=== PATIENT | male | born 1965 | race Caucasian/White ===

== ENCOUNTER 2017-10-29 11:26 | Emergency (ER) | payer OTHER ==
[~2017-10-29] VITALS: Ht 170.2 cm; Wt 118.1 kg
[~2017-10-29 11:26] MED LIST: DOCU1CAP39 PO; HYDR2.5%T PR; LISI-591 PO; SIMV20 PO; [UNRECOGNIZED DRUG - OTHER] RECTAL
[2017-10-29 11:27] VITALS: BP 145/70; PULSE 97; RESP 16; TEMP 98.3; O2SAT 95
[2017-10-29] MEDS ORDERED: FISHCAP4 PO (13:03)
[2017-10-29] MEDS ORDERED: LISI-515 PO (13:03)
[2017-10-29] MEDS ORDERED: ASPI81CH6 CHEW (13:03)
--- NOTE | 2017-10-29 13:25 | PD ---
HPI Chief Complaint: Hypertension Time Seen by Provider: 13:07 Travel History International Travel<30 days: No Contact w/Intl Traveler<30days: No Traveled to known affect area: No History of Present Illness HPI The patient is a 52-year-old male who presents to the emergency department for elevated blood pressure readings at home. The patient has a history of hypertension and was previously on lisinopril 40 mg daily, and initially prescribed by Dr. Gonzalez Chapman. However, the patient did not see his primary physician for several years, was using his lisinopril 40 mg prescription and taking 20 mg daily. The patient saw an urgent care several weeks ago to perform laboratory evaluation and advised them to follow-up with a primary physician. The patient did see another physician, Dr. Cook, who prescribed him lisinopril 20 mg daily to start with. The patient states over the last several weeks he has had intermittent episodes of dizziness, ringing in the ears, tunnel vision which she attributes to elevated blood pressure readings. Patient plans on following up with his primary physician tomorrow. Upon arrival the patient denies any chest pain, shortness of breath, lightheadedness, nausea, vomiting, or tinnitus. The patient is asymptomatic upon arrival. PFSH Past Medical History Blood Disorders: No Heart Rhythm Problems: Yes (tachycardia) Cancer: No Cardiac Catheterization: No Cardiovascular Problems: Yes (HTN) High Cholesterol: Yes Congestive Heart Failure: No Diabetes: No Diminished Hearing: No Endocrine: No Genitourinary: No Hypertension: Yes (borderline taking meds) Immune Disorder: No Musculoskeletal: No Neurologic: No Psychiatric: No Reproductive: No Respiratory: No Myocardial Infarction: No Past Surgical History Coronary Artery Bypass Graft: No Joint Replacement: Yes (plate in the left lower let) Pacemaker: No Other Surgery: Yes (REPAIR FINGER AMPUTATION) Family History Family Myocardial Infarction: Yes (father on June 24, 2009) Social History Alcohol Use: No Tobacco Use: No Substance Use: No Allergies-Medications (Allergen,Severity, Reaction): Coded Allergies: penicillin G (Unverified Allergy, Severe, Shortness of Breath, 10/29/17) Reported Meds & Prescriptions Reported Meds & Active Scripts Active Reported Aspirin Low Dose (Aspirin) 81 Mg Chew 81 Mg CHEW DAILY Fish Oil + D3 (Fish Oil-Cholecalciferol) 1,200-1,000 Mg-Unit Cap 1 Cap PO DAILY Lisinopril 20 Mg Tab 20 Mg PO DAILY Review of Systems Except as stated in HPI: all other systems reviewed are Neg Eyes: Positive: Other (occasional intermittent tunnel vision) HENT: Positive: Headaches, Other (frontal sinus headache for the patient) Cardiovascular: No: Chest Pain or Discomfort Respiratory: No: Shortness of Breath Gastrointestinal: No: Nausea, Vomiting, Abdominal Pain Neurologic: Positive: Dizziness, Headache, No: Focal Abnormalities, Ataxia, Change in Mentation, Slurred Speech, Paresthesia, Sensory Disturbance Physical Exam Narrative GENERAL: Awake, alert, pleasant 52-year-old male who appears his stated age and is in no acute respiratory distress. SKIN: Focused skin assessment warm/dry. HEAD: Atraumatic. Normocephalic. EYES: Pupils equal and round. Pupils are 4 mm bilateral and reactive. EOMs are intact. Patient is able to see fingers at a distance of 2 feet without difficulty. The patient does were glasses. TMs are translucent. EACs are clear. ENT: No nasal bleeding or discharge. Mucous membranes pink and moist. NECK: Trachea midline. No JVD. CARDIOVASCULAR: Regular rate and rhythm. Systolic murmur noted. RESPIRATORY: No accessory muscle use. Clear to auscultation. Breath sounds equal bilaterally. GASTROINTESTINAL: Abdomen soft, non-tender, nondistended. MUSCULOSKELETAL: No obvious deformities. No clubbing. No cyanosis. No edema. NEUROLOGICAL: Awake and alert. No obvious cranial nerve deficits. Motor grossly within normal limits. Normal speech. Nonfocal. Oriented 4. Finger to nose is normal. Patient ambulates without difficulty. PSYCHIATRIC: Appropriate mood and affect; insight and judgment normal. Data Data Last Documented VS Vital Signs Date Time Temp Pulse Resp B/P (MAP) Pulse Ox O2 Delivery O2 Flow Rate FiO2 10/29/17 13:26 88 148/83 (104) 144/79 (100) 10/29/17 11:27 98.3 16 95 Orders Orders Bilateral Bp Monitoring (10/29/17 13:19) Ed Discharge Order (10/29/17 14:07) [facility] Medical Decision Making Medical Screen Exam Complete: Yes Emergency Medical Condition: Yes Medical Record Reviewed: Yes Differential Diagnosis Differential diagnosis includes hypertension, hypertensive urgency, hypertensive emergency, CVA, TIA, sinus headache, labyrinthitis. Narrative Course The patient's neurologic exam is unremarkable. The patient states he had complete blood work performed 2 weeks ago which was unremarkable, states his kidney function was within normal limits. The patient also had an EKG at that time. The patient is currently asymptomatic, therefore, no indication for acute management. However, the patient's blood pressure was evaluated in both arms at bedside. Blood pressure was checked both sides, systolic was in the 140s and diastolic was in the 70s to 80s. The patient is advised to follow-up with his primary physician and return if symptoms worsen or progress. Diagnosis Primary Impression: Hypertension Qualified Codes: I10 - Essential (primary) hypertension Patient Instructions: General Instructions Additional Instructions: Follow-up with her primary physician. Return if symptoms worsen or progress. Med/Other Pt SpecificInfo: No Change to Meds Disposition: 01 DISCHARGE HOME Condition: Stable Kobi Núñez MD Oct 29, 2017 13:25
[2017-10-29 13:26] VITALS: BP_SYST 144; BP_SYST 148; BP_DIAS 79; BP_DIAS 83; PULSE 88
== END 2017-10-29 14:15 | disposition home or self-care (01) ==
LOC: PHED 11:26 → PHEFT 14:15
DX: I10 Essential (primary) hypertension (principal); E78.00 Pure hypercholesterolemia, unspecified
CPT/HCPCS: 99281

== ENCOUNTER 2018-03-27 18:19 | Observation (INO) | payer OTHER ==
[~2018-03-27] VITALS: Ht 167.6 cm; Wt 104.8 kg
[~2018-03-27 18:19] MED LIST changes: +ASPI81CH6 CHEW; -DOCU1CAP39 PO; +FISHCAP4 PO; -HYDR2.5%T PR; +LISI-515 PO; -LISI-591 PO; -SIMV20 PO; -[UNRECOGNIZED DRUG - OTHER] RECTAL
[2018-03-27 18:40] VITALS: BP 132/77; PULSE 102; RESP 16; TEMP 99; O2SAT 97
[2018-03-27] MEDS ORDERED: GARL400T2 PO (19:04)
[2018-03-27] MEDS ORDERED: SODIUM CHLORIDE 0.9% FLUSH 10 ML FLUSH IV FLUSH PRN ×2 (20:00→23:00)
[2018-03-27 20:01] LABS: AUTOMATED NEUTROPHIL # 5.9 TH/MM3 (1.8-7.7); BASOPHIL # 0.1 TH/MM3 (0-0.2); BASOPHIL % 1.3 % (0.0-2.0); EOSINOPHIL # 0.1 TH/MM3 (0-0.4); EOSINOPHIL % 0.8 % (0.0-4.0); HEMATOCRIT 41.9 % (39.0-51.0); HEMOGLOBIN 13.7 GM/DL (13.0-17.0); LYMPH % 29.5 % (9.0-44.0); LYMPHOCYTE # 2.8 TH/MM3 (1.0-4.8); MEAN CELL VOLUME 86.5 FL (80.0-100.0); MEAN CORPUSCULAR HEMOGLOBIN 28.3 PG (27.0-34.0); MEAN CORPUSCULAR HGB CONC 32.7 % (32.0-36.0); MEAN PLATELET VOLUME 7.9 FL (7.0-11.0); MONO % 6.4 % (0.0-8.0); MONOCYTE # 0.6 TH/MM3 (0-0.9); PLATELET COUNT 266 TH/MM3 (150-450); RED BLOOD COUNT 4.84 MIL/MM3 (4.50-5.90); RED CELL DISTRIBUTION WIDTH 12.6 % (11.6-17.2); WHITE BLOOD COUNT 9.5 TH/MM3 (4.0-11.0)
[2018-03-27 20:09] LABS: CHLORIDE 104 MEQ/L (98-107); SODIUM (NA) 138 MEQ/L (136-145)
[2018-03-27 20:13] LABS: ALBUMIN 3.6 GM/DL (3.4-5.0); BICARBONATE 27.7 MEQ/L (21.0-32.0); BLOOD UREA NITROGEN 13 MG/DL (7-18); GLUCOSE,RANDOM 87 MG/DL (74-106); MAGNESIUM 2.2 MG/DL (1.5-2.5)
[2018-03-27 20:16] LABS: ALT (GPT) 32 U/L (12-78); AST (GOT) 16 U/L (15-37); CREATININE 0.78 MG/DL (0.60-1.30); GLOMERULAR FILTRATION RATE 104 ML/MIN (>89)
[2018-03-27 20:18] LABS: TOTAL BILIRUBIN ADULT 0.4 MG/DL (0.2-1.0); TOTAL PROTEIN 7.4 GM/DL (6.4-8.2)
[2018-03-27 20:19] LABS: ALKALINE PHOSPHATASE 58 U/L (45-117)
[2018-03-27 20:21] LABS: TROPONIN I LESS THAN 0.02 NG/ML (0.02-0.05)
[2018-03-27] MEDS ORDERED: IOHEXOL 350 MG/ML 10 ML VIAL (for RAD DIAG) IVCONTRAST ONE (21:21)
[2018-03-27 21:22] VITALS: BP 121/77; PULSE 83; RESP 16; O2SAT 98
--- NOTE | 2018-03-27 21:37 | RADRPT ---
EXAM DATE/TIME: 03/27/2018 20:33 [facility] COMPARISON: CT ABDOMEN & PELVIS W CONTRAST, March 27, 2018, 21:04. INDICATIONS : Epigastric pain for 3 weeks. MEDICAL HISTORY : Hypertension. Hypercholesterolemia. SURGICAL HISTORY : None. ENCOUNTER: Initial ACUITY: 3 weeks PAIN SCORE: 4/10 LOCATION: Epigastric. FINDINGS: Slight streaky parenchymal opacity in the lung bases. No evidence of effusion. Cardiomediastinal cont ours are satisfactory. CONCLUSION: Mild bibasilar parenchymal opacities Rehan Farmer MD on March 27, 2018 at 21:34 Board Certified Radiologist. This report was verified electronically.
--- NOTE | 2018-03-27 21:42 | RADRPT ---
EXAM DATE/TIME: 03/27/2018 21:04 [facility] COMPARISON: CHEST SINGLE AP, March 27, 2018, 20:33. INDICATIONS : Bilateral lower quadrant pain. IV CONTRAST: 100 cc Omnipaque 350 (iohexol) IV ORAL CONTRAST: No oral contrast ingested. RADIATION DOSE: 21.82 CTDIvol (mGy) MEDICAL HISTORY : Hypertension. SURGICAL HISTORY : None. ENCOUNTER: Initial ACUITY: 3 weeks PAIN SCALE: 1/10 LOCATION: Bilateral lower quadrant TECHNIQUE: Volumetric scanning of the abdomen and pelvis was performed. Using automated exposure control and ad justment of the mA and/or kV according to patient size, radiation dose was kept as low as reasonably achievable to obtain optimal diagnostic quality images. DICOM format image data is available electro nically for review and comparison. FINDINGS: LOWER LUNGS: Minimal linear atelectasis or scarring in the lung bases. LIVER: Small right lobe hepatic cyst. No suspicious mass. No biliary ductal dilatation. SPLEEN: Normal size without lesion. PANCREAS: Within normal limits. KIDNEYS: 3.4 cm cyst arising from the posterior upper pole cortex of the left kidney. Right kidney is unremark able. No hydronephrosis or stone. ADRENAL GLANDS: Within normal limits. VASCULAR: There is no aortic aneurysm. BOWEL/MESENTERY: The stomach, small bowel, and colon demonstrate no acute abnormality. There is no free intraperitone al air or fluid. ABDOMINAL WALL: Within normal limits. RETROPERITONEUM: There is no lymphadenopathy. BLADDER: No wall thickening or mass. REPRODUCTIVE: Within normal limits. INGUINAL: There is no lymphadenopathy or hernia. MUSCULOSKELETAL: Within normal limits for patient age. CONCLUSION: Hepatic and renal cysts. No acute CT findings. Rehan Farmer MD on March 27, 2018 at 21:36 Board Certified Radiologist. This report was verified electronically.
[2018-03-27 22:00] VITALS: TEMP 98
[2018-03-27 22:16] LABS: BILIRUBIN, URINE NEG (NEG); BLOOD, URINE NEG (NEG); GLUCOSE,URINE NEG (NEG); KETONE, URINE 15 mg/dL (NEG); NITRITE,URINE NEG (NEG); PH, URINE 5.5 (5.0-8.5); URINE COLOR YELLOW (YELLW/STRAW); URINE LEUKOCYTE ESTERASE NEG (NEG)
[2018-03-27 22:28] LABS: SQUAMOUS EPITHELIAL CELL URINE 0-5 /hpf (0-5); WBC, URINE 0-2 /hpf (0-5)
--- NOTE | 2018-03-27 22:43 | PD ---
HPI Chief Complaint: Abdominal Pain Time Seen by Provider: 19:47 Travel History International Travel<30 days: No Contact w/Intl Traveler<30days: No Traveled to known affect area: No History of Present Illness HPI 53-year-old male with history of hypertension presents to the emergency department for complaint of retrosternal chest pain. Patient states it occurred this afternoon while he was exerting himself trying to climb a ladder. Patient reports "I was afraid I was having a heart attack". Patient states he is physically active and goes to the gym but has not had episodes like this. Patient does not recall any specific referred neck jaw back shoulder arm pain but did note some associated shortness of breath. Patient had brief nausea. Patient states last stress test or cardiac evaluation was in 2007. Patient thinks his blood sugar is well controlled and last blood work from his primary indicated his cholesterol was well-controlled. Patient denies personal history of tobacco use. Patient does have family history of premature onset heart disease in his father. Patient is also been undergoing evaluation over the past 8 months for vague nonspecific abdominal discomfort and was recently seen by his primary care provider today who recommended a study. Over the past 8 months patient has been on a diet to lose weight. Patient has had no hematemesis coffee-ground emesis melena or hematochezia. Patient denies any dysuria frequency urgency or flank pain. Patient's had no lower extremity pain or swelling; no protracted bedrest surgical procedure long distance travel. PFSH Past Medical History Narrative Medical Hypertension episodes of tachycardia dyslipidemia kidney stones osteomyelitis; no tobacco use; family history MT; nursing notes reviewed Blood Disorders: No Heart Rhythm Problems: Yes (tachycardia) Cancer: No Cardiac Catheterization: No Cardiovascular Problems: Yes (HTN) High Cholesterol: Yes Congestive Heart Failure: No Diabetes: No Diminished Hearing: No Endocrine: No Genitourinary: No Hypertension: Yes (borderline taking meds) Immune Disorder: No Kidney Stones: Yes (?) Medical other: Yes (OSTEOMYELITIS LEFT TIBIA) Musculoskeletal: No Neurologic: No Psychiatric: No Reproductive: No Respiratory: No Myocardial Infarction: No Tetanus Vaccination: > 5 Years Influenza Vaccination: Yes Past Surgical History Coronary Artery Bypass Graft: No Joint Replacement: Yes (PLATE LEFT LOWER LEG) Pacemaker: No Other Surgery: Yes (REPAIR FINGER AMPUTATION) Family History Family Myocardial Infarction: Yes (father on June 24, 2009) Social History Alcohol Use: No Tobacco Use: No Substance Use: No Allergies-Medications (Allergen,Severity, Reaction): Coded Allergies: penicillin G (Verified Allergy, Severe, Shortness of Breath, 03/27/18) Reported Meds & Prescriptions Reported Meds & Active Scripts Active Reported Garlic 400 Mg Tab 1 Tab PO DAILY Aspirin Low Dose (Aspirin) 81 Mg Chew 81 Mg CHEW DAILY Fish Oil + D3 (Fish Oil-Cholecalciferol) 1,200-1,000 Mg-Unit Cap 1 Cap PO DAILY Lisinopril 20 Mg Tab 20 Mg PO DAILY Review of Systems Except as stated in HPI: all other systems reviewed are Neg General / Constitutional: No: Fever, Chills HENT: No: Congestion Cardiovascular: Positive: Chest Pain or Discomfort Respiratory: Positive: Shortness of Breath Gastrointestinal: Positive: Nausea, Abdominal Pain Genitourinary: No: Flank Pain Musculoskeletal: No: Myalgias, Arthralgias Skin: No Rash Neurologic: No: Weakness Psychiatric: No: Anxiety Hematologic/Lymphatic: No: Lymph Node Enlargement Physical Exam Narrative GENERAL: Well-developed well-nourished male no acute distress no respiratory distress male appears mildly anxious SKIN: Warm and dry. HEAD: Normocephalic. EYES: No scleral icterus. No injection or drainage. NECK: Supple, trachea midline. No JVD or lymphadenopathy. CARDIOVASCULAR: Regular rate and rhythm without murmurs, gallops, or rubs. RESPIRATORY: Breath sounds equal bilaterally. No accessory muscle use. GASTROINTESTINAL: Abdomen soft, non-tender, nondistended. Rectal exam: Normal sphincter tone non-boggy prostate with midline sulcus no nodularity scant brown mucus on exam glove heme negative; exam circumcised male bilaterally descended testicles no palpable hernia or mass. MUSCULOSKELETAL: No cyanosis, or edema. BACK: Nontender without obvious deformity. No CVA tenderness. Data Data Last Documented VS Vital Signs Date Time Temp Pulse Resp B/P (MAP) Pulse Ox O2 Delivery O2 Flow Rate FiO2 03/27/18 22:00 98.0 03/27/18 21:22 83 16 98 Room Air Orders Orders Electrocardiogram (03/27/18 18:49) Complete Blood Count With Diff (03/27/18 19:47) Comprehensive Metabolic Panel (03/27/18 19:47) Lipase (03/27/18 19:47) Urinalysis - C+S If Indicated (03/27/18 19:47) Ct Abd/Pel W Iv Contrast(Rout) (03/27/18 19:47) Iv Access Insert/Monitor (03/27/18:47) Ecg Monitoring (03/27/18 19:47) Oximetry (03/27/18 19:47) Sodium Chloride 0.9% Flush (Ns Flush) (03/27/18 20:00) Chest, Single Ap (03/27/18 19:47) Magnesium (Mg) (03/27/18 19:47) Troponin I (03/27/18 19:47) Ckmb (Isoenzyme) Profile (03/27/18 19:47) CKMB (03/27/18 19:35) CKMB% (03/27/18 19:35) Iohexol 350 Inj (Omnipaque 350 Inj) (03/27/18 21:21) Vital Signs (Adult) NADINE.Q4H (03/27/18 22:44) Troponin I (03/28/18 04:00) Sodium Chlor 0.9% 1000 Ml Inj (Ns 1000 M (03/27/18 22:45) Admit Order (Ed Use Only) (03/27/18 ) Shipfitter Apprentice / Telemetry NADINE.Q8H (03/27/18 22:46) Diet Heart Healthy (03/28/18 Breakfast) Activity Oob With Assistance (03/27/18 22:46) Notify Dr: Other (03/27/18 22:46) Activity Bed Rest With Brp (03/27/18 22:46) Vital Signs (Adult) Q4H (03/27/18 22:46) Cardiac Rhythm .As Directed (03/27/18 22:46) Notify Dr: Other .PRN (03/27/18 22:46) Notify Parameters (03/27/18 22:46) Ckmb (Isoenzyme) Profile (03/27/18 22:46) Troponin I (03/27/18 22:46) Electrocardiogram (03/27/18 22:46) Electrocardiogram (03/28/18 01:46) ^ Obtain (03/27/18 22:46) Sodium Chloride 0.9% Flush (Ns Flush) (03/27/18 23:00) Sodium Chloride 0.9% Flush (Ns Flush) (03/28/18 09:00) Nitroglycerin Sl (Nitrostat Sl) (03/27/18 23:00) Shipfitter Apprentice / Telemetry NADINE.Q8H (03/27/18 22:46) Morphine Inj (Morphine Inj) (03/27/18 22:45) Ckmb (Isoenzyme) Profile (03/28/18 03:00) CKMB (03/28/18 02:59) CKMB% (03/28/18 02:59) Labs Laboratory Tests Test 03/27/18 19:35 03/27/18 22:10 White Blood Count 9.5 TH/MM3 Red Blood Count 4.84 MIL/MM3 Hemoglobin 13.7 GM/DL Hematocrit 41.9 % Mean Corpuscular Volume 86.5 FL Mean Corpuscular Hemoglobin 28.3 PG Mean Corpuscular Hemoglobin Concent 32.7 % Red Cell Distribution Width 12.6 % Platelet Count 266 TH/MM3 Mean Platelet Volume 7.9 FL Neutrophils (%) (Auto) 62.0 % Lymphocytes (%) (Auto) 29.5 % Monocytes (%) (Auto) 6.4 % Eosinophils (%) (Auto) 0.8 % Basophils (%) (Auto) 1.3 % Neutrophils # (Auto) 5.9 TH/MM3 Lymphocytes # (Auto) 2.8 TH/MM3 Monocytes # (Auto) 0.6 TH/MM3 Eosinophils # (Auto) 0.1 TH/MM3 Basophils # (Auto) 0.1 TH/MM3 CBC Comment DIFF FINAL Differential Comment Blood Urea Nitrogen 13 MG/DL Creatinine 0.78 MG/DL Random Glucose 87 MG/DL Total Protein 7.4 GM/DL Albumin 3.6 GM/DL Calcium Level 9.0 MG/DL Magnesium Level 2.2 MG/DL Alkaline Phosphatase 58 U/L Aspartate Amino Transf (AST/SGOT) 16 U/L Alanine Aminotransferase (ALT/SGPT) 32 U/L Total Bilirubin 0.4 MG/DL Sodium Level 138 MEQ/L Potassium Level 3.5 MEQ/L Chloride Level 104 MEQ/L Carbon Dioxide Level 27.7 MEQ/L Anion Gap 6 MEQ/L Estimat Glomerular Filtration Rate 104 ML/MIN Total Creatine Kinase 153 U/L Creatine Kinase MB 3.7 NG/ML Troponin I LESS THAN 0.02 NG/ML Lipase 189 U/L Urine Color YELLOW Urine Turbidity CLEAR Urine pH 5.[address] 1.020 Urine Protein NEG mg/dL Urine Glucose (UA) NEG mg/dL Urine Ketones 15 mg/dL Urine Occult Blood NEG Urine Nitrite NEG Urine Bilirubin NEG Urine Urobilinogen 0.2 MG/DL Urine Leukocyte Esterase NEG Urine WBC 0-2 /hpf Urine Squamous Epithelial Cells 0-5 /hpf Microscopic Urinalysis Comment CULT NOT INDICATED MDM Medical Decision Making Medical Screen Exam Complete: Yes Emergency Medical Condition: Yes Medical Record Reviewed: Yes Interpretation(s) Last Impressions Chest X-Ray 03/27/181946 Signed Impressions: Service Date/Time: Tuesday, March 27, 2018 20:33 - CONCLUSION: Mild bibasilar parenchymal opacities Rehan Farmer MD Abdomen/Pelvis CT 03/27/181946 Signed Impressions: Service Date/Time: Tuesday, March 27, 2018 21:04 - CONCLUSION: Hepatic and renal cysts. No acute CT findings. Rehan Farmer MD CBC & BMP Diagram 03/27/18 19:35 Total Protein 7.4, Albumin 3.6, Calcium Level 9.0, Magnesium Level 2.2, Alkaline Phosphatase 58, Aspartate Amino Transf (AST/SGOT) 16, Alanine Aminotransferase (ALT/SGPT) 32, Total Bilirubin 0.4 Vital Signs Date Time Temp Pulse Resp B/P (MAP) Pulse Ox O2 Delivery O2 Flow Rate FiO2 03/27/18 22:00 98.0 03/27/18 21:22 83 16 121/77 (92) 98 Room Air 03/27/18 18:40 99.0 102 16 132/77 (95) 97 Differential Diagnosis Abdominal pain colitis diverticulitis mass prostatitis UTI urethritis chest pain atypical chest pain ACS MT uncontrolled hypertension Narrative Course 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 obtained specimens collected and sent for resulting Imaging study ordered EKG performed normal sinus rhythm rate [address] elevation injury pattern; patient monitored on paper bags sewing machine operator noted to have frequent unifocal PVCs intermittent ventricular bigeminy Lab values found to be grossly in normal range troponin I is less than 0.02 CK total is 153 not elevated however CK-MB is elevated at 3.7 fortunately MB percent is 2.4% not elevated Chest x-ray no acute abnormality CT abdomen pelvis reveals renal cysts and hepatic cysts but no acute intra- abdominal or intra-pelvic process and atelectasis versus basilar scarring of the lungs by CT Urinalysis normal Patient informed of lab results imaging results and appears asymptomatic at this time patient given one-time dose of aspirin; in view of complaint of chest pain with shortness of breath with history of hypertension prior dyslipidemia and age 53-year-old male with family history of MT will recommend observation admission for chest pain center per protocol last cardiac evaluation was in 2007. [facility] Point of Care Internal Pos. & Neg. Controls: Passed Fecal Specimen Occult Blood: Negative Physician Communication Physician Communication discussed with Dr Lamb --obs [facility] protocol Diagnosis Primary Impression: Chest pain Additional Impressions: Nonspecific abdominal pain Renal cyst Hepatic cyst Admitting Information Admitting Physician Requests: Observation Elizabeth Noble MD March 27, 2018 22:43
[2018-03-27] MEDS ORDERED: MORPHINE SULFATE 4 MG/ML INJ IV PUSH PRN (22:45)
[2018-03-27] MEDS ORDERED: NITROGLYCERIN 0.4 MG SL 25 TABS/BTL SL PRN (23:00)
[2018-03-27] MEDS: SODIUM CHLOR 0.9% 1000 ML INJ 1,000 ML IV SCH (23:05)
[2018-03-27 23:06] VITALS: BP 124/69; PULSE 81; RESP 16; O2SAT 97
[2018-03-28 00:28] LABS: TROPONIN I LESS THAN 0.02 NG/ML (0.02-0.05)
[2018-03-28 01:20] VITALS: PULSE 68
[2018-03-28 01:40] VITALS: BP 123/72; PULSE 67; RESP 22; TEMP 96.9; O2SAT 97
[2018-03-28 04:10] LABS: TROPONIN I LESS THAN 0.02 NG/ML (0.02-0.05)
[2018-03-28] MEDS: SODIUM CHLOR 0.9% 1000 ML INJ 1,000 ML IV SCH (06:10)
[2018-03-28 07:26] VITALS: PULSE 71
[2018-03-28 08:00] VITALS: BP 127/78; PULSE 84; RESP 21; TEMP 98.3; O2SAT 97
--- NOTE | 2018-03-28 08:27 | HHI.HP ---
[facility] Service [facility] Primary Care Physician Gonzalez Chapman MD Admission Diagnosis Chest pain; nonspecific chronic abdominal pain Diagnoses: (1) Chest pain (2) Nonspecific abdominal pain Chief Complaint: Abdominal pain Chest pain Travel History International Travel<30 Days: No Contact w/Intl Traveler <30 Da: No Traveled to Known Affected Are: No History of Present Illness This is a pleasant 53-year-old male patient with a known medical history of hypertension and hyper lipidemia who presented to the ED with complaints of bilateral lower quadrant abdominal pain with subsequent mid epigastric/ midsternal chest pain. Patient states that he has been having this abdominal pain for the past month, has seen his PCP who has started the workup for the pain, was ordered for an abdominal CT outpatient later this week. Patient states that yesterday while trying to climb a ladder he was exerting himself and also developed a retrosternal chest pain in exacerbation of this chronic abdominal pain he has been having. He denies any radiation of the pain of his jaw, back, arms. Denies any associated nausea, vomiting, diaphoresis or shortness of breath. Patient does admit to a 50 pound weight loss over the past 8 months, patient states he has been pretty active and changed his lifestyle to lose weight. Patient denies any blood in his stools or black stools. Does state his last colonoscopy was 15 years ago. Has never underwent an EGD before. Patient denies any recent illness including fever, chills, cough , shortness of breath, headache, diarrhea or dysuria. Patient does admit undergoing a cardiac stress test roughly 10 years ago which was reportedly normal. 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 It should be noted that patient also had complaints earlier this year for a right ear infection, underwent multiple doses of antibiotics and patient states this is now resolved. Troponin trend flat on presentation. Chest x-ray showing mild bibasilar opacities although patient has not had any symptoms. No leukocytosis. EKG reviewed showing occasional PVCs. Patient does have a family medical history of his father having an CO and dying at the age of [address]272 [address] on presentation showing hepatic and renal cyst. No acute findings. Review of Systems Constitutional: DENIES: Fatigue, Fever, Chills Eyes: DENIES: Diplopia Respiratory: DENIES: Cough, Sputum production, Shortness of breath Cardiovascular: COMPLAINS OF: Chest pain, DENIES: Palpitations, Lower Extremity Edema Gastrointestinal: COMPLAINS OF: Abdominal pain, DENIES: Black stools, Bloody stools, Constipation, Diarrhea, Nausea, Vomiting Musculoskeletal: DENIES: Joint pain Hematologic/lymphatic: DENIES: Bruising Psychiatric: DENIES: Anxiety Except as stated in HPI: all other systems reviewed are Neg Past Family Social History Past Medical History Hypertension History tachycardia Hyperlipidemia History of osteomyelitis and left lower extremity History of kidney stones. Past Surgical History Plate placement in his left lower leg. Left pinky finger amputation. Colonoscopy 15 years ago. Reported Medications Active Reported Garlic 400 Mg Tab 1 Tab PO DAILY Aspirin Low Dose (Aspirin) 81 Mg Chew 81 Mg CHEW DAILY Fish Oil + D3 (Fish Oil-Cholecalciferol) 1,200-1,000 Mg-Unit Cap 1 Cap PO DAILY Lisinopril 20 Mg Tab 20 Mg PO DAILY Allergies: Coded Allergies: penicillin G (Verified Allergy, Severe, Shortness of Breath, 03/27/18) Active Ordered Medications Current Medications Medications (Trade) Dose Ordered Sig/Brigette Route Start Time Stop Time Status Last Admin Sodium Chloride 1,000 ml @ 100 mls/hr Q10H IV 03/27/18 22:45 03/28/18 06:10 (Morphine Inj) 2 mg Q4H PRN IV PUSH 03/27/18 22:45 (NS Flush) 2 ml UNSCH PRN IV FLUSH 03/27/18 23:00 (NS Flush) 2 ml BID IV FLUSH 03/28/18 09:00 (Nitrostat Sl) 0.4 mg Q5M PRN SL 03/27/18 23:00 Family History Paternal medical history significant for cardiovascular disease and CO at the age of 7272 years old. Social History Patient denies any current or previous tobacco abuse, states he drinks maybe 1 alcoholic drink per month, denies any illicit drug use. Physical Exam Vital Signs Vital Signs Date Time Temp Pulse Resp B/P (MAP) Pulse Ox O2 Delivery O2 Flow Rate FiO2 03/28/18 07:26 71 03/28/18 01:40 96.9 67 22 123/72 (89) 97 5/16/18 01:20 68 03/28/18 01:00 03/27/18 23:06 81 16 124/69 (87) 97 Room Air 03/27/18 22:00 98.0 03/27/18 21:22 83 16 121/77 (92) 98 Room Air 03/27/18 18:40 99.0 102 16 132/77 (95) 97 Physical Exam GENERAL: Well-developed, well-nourished patient in NAD. SKIN: Warm and dry. No rash. HEAD: Normocephalic. Atraumatic. EYES: Pupils equal and round. No scleral icterus. No injection or drainage. ENT: No nasal bleeding or discharge. Mucous membranes pink and moist. NECK: Supple. Trachea midline. CARDIOVASCULAR: Regular rate and rhythm. S1, S2 noted. No murmur appreciated. No chest pain to palpation. RESPIRATORY: No accessory muscle use. Clear to auscultation. Breath sounds equal bilaterally. GASTROINTESTINAL: Abdomen soft, non-tender, nondistended. Normoactive bowel sounds x4. MUSCULOSKELETAL: No obvious deformities. Extremities without clubbing, cyanosis , or edema. NEUROLOGICAL: Awake and alert. No obvious cranial nerve deficits. Motor grossly within normal limits. 5/5 muscle strength in bilateral upper and lower extremities. Normal speech. PSYCHIATRIC: Appropriate mood and affect; insight and judgment normal. Laboratory Laboratory Tests Test 03/27/18 19:35 03/27/18 22:10 03/28/18 00:01 03/28/18 02:59 White Blood Count 9.5 Red Blood Count 4.84 Hemoglobin 13.7 Hematocrit 41.9 Mean Corpuscular Volume 86.5 Mean Corpuscular Hemoglobin 28.3 Mean Corpuscular Hemoglobin Concent 32.7 Red Cell Distribution Width 12.6 Platelet Count 266 Mean Platelet Volume 7.9 Neutrophils (%) (Auto) 62.0 Lymphocytes (%) (Auto) 29.5 Monocytes (%) (Auto) 6.4 Eosinophils (%) (Auto) 0.8 Basophils (%) (Auto) 1.3 Neutrophils # (Auto) 5.9 Lymphocytes # (Auto) 2.8 Monocytes # (Auto) 0.6 Eosinophils # (Auto) 0.1 Basophils # (Auto) 0.1 CBC Comment DIFF FINAL Differential Comment Blood Urea Nitrogen 13 Creatinine 0.78 Random Glucose 87 Total Protein 7.4 Albumin 3.6 Calcium Level 9.0 Magnesium Level 2.2 Alkaline Phosphatase 58 Aspartate Amino Transf (AST/SGOT) 16 Alanine Aminotransferase (ALT/SGPT) 32 Total Bilirubin 0.4 Sodium Level 138 Potassium Level 3.5 Chloride Level 104 Carbon Dioxide Level 27.7 Anion Gap 6 Estimat Glomerular Filtration Rate 104 Total Creatine Kinase 153 140 128 Creatine Kinase MB 3.7 3.4 2.9 Troponin I LESS THAN 0.02 LESS THAN 0.02 LESS THAN 0.02 Lipase 189 Urine Color YELLOW Urine Turbidity CLEAR Urine pH 5.5 Urine Specific [place] 1.020 Urine Protein NEG Urine Glucose (UA) NEG Urine Ketones 15 Urine Occult Blood NEG Urine Nitrite NEG Urine Bilirubin NEG Urine Urobilinogen 0.2 Urine Leukocyte Esterase NEG Urine WBC 0-2 Urine Squamous Epithelial Cells 0-5 Microscopic Urinalysis Comment CULT NOT INDICATED Result Diagram: 03/27/18193403/27/181934 Imaging Last Impressions Chest X-Ray 03/27/181946 Signed Impressions: Service Date/Time: Tuesday, March 27, 2018 20:33 - CONCLUSION: Mild bibasilar parenchymal opacities Rehan Farmer MD Abdomen/Pelvis CT 03/27/181946 Signed Impressions: Service Date/Time: Tuesday, March 27, 2018 21:04 - CONCLUSION: Hepatic and renal cysts. No acute CT findings. Rehan Farmer MD Septic Shock Reassessment Septic shock perfusion: reassessment completed Caprini VTE Risk Assessment Caprini VTE Risk Assessment: No/Low Risk (score <= 1) Caprini Risk Assessment Model Point Value = 1 Point Value = 2 Point Value = 3 Point Value = 5 Age 41-60 Minor surgery BMI > 25 kg/m2 Swollen legs Varicose veins or History of unexplained or recurrent spontaneous Oral contraceptives or hormone replacement Sepsis (< 1 month) Serious lung disease, including pneumonia (< 1 month) Abnormal pulmonary function Acute myocardial infarction Congestive heart failure (< 1 month) History of inflammatory bowel disease Medical patient at bed rest Age 61-74 Arthroscopic surgery Major open surgery (> 45 min) Laparoscopic surgery (> 45 min) Malignancy Confined to bed (> 72 hours) Immobilizing plaster cast Central venous access Age >= 75 History of VTE Family history of VTE Factor V Leiden Prothrombin [id number] Lupus anticoagulant Anticardiolipin antibodies Elevated serum homocysteine Heparin-induced thrombocytopenia Other congenital or acquired thrombophilia Stroke (< 1 month) Elective arthroplasty Hip, pelvis, or leg fracture Acute spinal cord injury (< 1 month) Prophylaxis Regimen Total Risk Factor Score Risk Level Prophylaxis Regimen 0-1 Low Early ambulation 2 Moderate Order ONE of the following: *Sequential Compression Device (SCD) *Heparin 5000 units SQ BID 3-4 Higher Order ONE of the following medications: *Heparin 5000 units SQ TID *Enoxaparin/Lovenox 40 mg SQ daily (WT < 150 kg, CrCl > 30 mL/min) *Enoxaparin/Lovenox 30 mg SQ daily (WT < 150 kg, CrCl > 10-29 mL/min) *Enoxaparin/Lovenox 30 mg SQ BID (WT < 150 kg, CrCl > 30 mL/min) AND/OR *Sequential Compression Device (SCD) 5 or more Highest Order ONE of the following medications: *Heparin 5000 units SQ TID (Preferred with Epidurals) *Enoxaparin/Lovenox 40 mg SQ daily (WT < 150 kg, CrCl > 30 mL/min) *Enoxaparin/Lovenox 30 mg SQ daily (WT < 150 kg, CrCl > 10-29 mL/min) *Enoxaparin/Lovenox 30 mg SQ BID (WT < 150 kg, CrCl > 30 mL/min) AND *Sequential Compression Device (SCD) Assessment and Plan Problem List: (1) Chest pain ICD Code: R07.9 - Chest pain, unspecified Status: Acute Plan: Patient has been admitted to the chest pain center for observation, serial EKGs and serial troponins have been ordered for ruling out ACS purposes. Serial troponins flat. EKG reviewed showing sinus rhythm with occasional PVCs. No ST changes to indicate any ischemia. Continue cardiac telemetry, no acute events overnight. Chest x-ray showing no acute abnormality, there are mild bibasilar opacities although patient has not had any symptoms denies any recent cough, chills, fever, shortness of breath. Patient's chest pain and abdominal pain has resolved. Patient will undergo a cardiac treadmill stress test to further rule out any ischemia. Patient is stable at this time and agreeable to the plan. Further hospitalization and treatment plan will depend on cardiac treadmill stress test results. (2) Nonspecific abdominal pain ICD Code: R10.9 - Unspecified abdominal pain Status: Acute Plan: An abdominal CT/pelvis was performed upon presentation showing hepatic and renal cysts. With no acute findings. At this time will be supportive care and outpatient recommendations for possible colonoscopy and further GI referral and workup. Assessment and Plan Patient underwent a cardiac treadmill stress test, images reviewed by on-call local company flatbed truck driver, Dr. Robertson. There is no ischemia noted. Patient will be discharged home to follow-up with PCP. All symptoms have resolved. Patient states he feels back to his baseline. Patient is stable at this time and agreeable to plan. Vital signs have been stable. Abdominal workup negative. Will have patient follow-up with PCP, possible referral to gastroenterology. Patient does need a colonoscopy per guidelines, has not had one for over 15 years now. Ami Pollard March 28, 2018 08:27
[2018-03-28] MEDS ORDERED: SODIUM CHLORIDE 0.9% FLUSH 10 ML FLUSH IV FLUSH SCH (09:00)
[2018-03-28] MEDS ORDERED: LISINOPRIL 20 MG TAB PO SCH (09:00)
[2018-03-28] MEDS ORDERED: ASPIRIN 81 MG CHEW TAB CHEW SCH (09:00)
[2018-03-28] MEDS ORDERED: ACETAMINOPHEN 325 MG TAB PO PRN (10:30)
--- NOTE | 2018-03-28 10:54 | HHI.DCPOC ---
Discharge Care Plan Diagnosis: (1) Nonspecific abdominal pain (2) Chest pain (3) Renal cyst (4) Hepatic cyst Goals to Promote Your Health * To prevent worsening of your condition and complications * To maintain your health at the optimal level Directions to Meet Your Goals Take your medications as prescribed Follow your dietary instruction Follow activity as directed Keep your appointments as scheduled Take your immunizations and boosters as scheduled If your symptoms worsen call your PCP, if no PCP go to Urgent Care Center or Emergency Room Smoking is Dangerous to Your Health. Avoid second hand smoke Call the 24-hour hour crisis hotline for domestic abuse at Ami Pollard March 28, 2018 10:54
--- NOTE | 2018-03-28 16:34 | EKG ---
Date Performed: 03/28/2018 Time Performed: 01:55:25 PTAGE: 53 years EKG: Sinus rhythm WITH OCCASIONAL VENTRICULAR PREMATURE COMPLEXES BORDERLINE ECG PREVIOUS TRACING : 03/27/2018 23.59 Since previous tracing, no significant change noted DOCTOR: Jayro Robertson Interpretating Date/Time 03/30/2018 07:16:48
--- NOTE | 2018-03-28 16:34 | EKG ---
Date Performed: 03/27/2018 Time Performed: 23:59:44 PTAGE: 53 years EKG: Sinus rhythm NORMAL ECG PREVIOUS TRACING : 03/27/2018 22.57 Since previous tracing, no significant change noted DOCTOR: Jayro Robertson Interpretating Date/Time 03/28/2018 16:34:30
--- NOTE | 2018-03-28 16:35 | EKG ---
Date Performed: 03/27/2018 Time Performed: 18:51:48 PTAGE: 53 years EKG: Sinus rhythm NORMAL ECG INTERPRETATION BASED ON A DEFAULT AGE OF 40 YEARS PREVIOUS TRACING : 07/29/2009 15.41 Since previous tracing, no significant change noted DOCTOR: Jayro Robertson Interpretating Date/Time 03/28/2018 16:34:52
--- NOTE | 2018-03-28 16:35 | EKG ---
Date Performed: 03/27/2018 Time Performed: 22:57:24 PTAGE: 53 years EKG: Sinus rhythm WITH OCCASIONAL VENTRICULAR PREMATURE COMPLEXES BORDERLINE ECG PREVIOUS TRACING : 03/27/2018 18.51 Since previous tracing, no significant change noted DOCTOR: Jayro Robertson Interpretating Date/Time 03/28/2018 16:34:42
--- NOTE | 2018-03-28 16:38 | TR ---
Date Performed: 03/28/2018 Time Performed: 09:05:53 DOCTOR: Jayro Robertson DRUG LIST: CLINICAL HISTORY: CHEST PAIN REASON FOR TEST: Chest pain REASON FOR ENDING: OBSERVATION: CONCLUSION: Juarez protocol performed and complete test stopped sec to reaching target heart rate . No reproducible chest discomfort or pain. Great exercise tolerance. Frequent PVCs, asymptomatic. Go od BP response. Recovery quick and unremarkable.Maximum IU=851 Target TG=508 Maximum KW=406/80 Total Exercise Time=5:12 COMMENTS: Patient exercised using the Juarez protocol. No electrocardiographic changes were seen to suggest ischemia. Hemodynamic response to exercise was normal. No significant arrhythmia was prese nt.
== END 2018-03-28 11:48 | disposition home or self-care (01) ==
LOC: PHED 18:19 → PHEDA 22:47 → PH3A 03-28 00:57
PROVIDERS: ADMIT Hospitalist; ATTEND Hospitalist
DX: R07.89 Other chest pain (principal); R10.31 Right lower quadrant pain; R10.32 Left lower quadrant pain; G89.29 Other chronic pain; R06.02 Shortness of breath; R11.0 Nausea; Z82.49 Family history of ischemic heart disease and other diseases of the circulatory system; R91.8 Other nonspecific abnormal finding of lung field; I49.3 Ventricular premature depolarization; K76.89 Other specified diseases of liver; N28.1 Cyst of kidney, acquired; I10 Essential (primary) hypertension; E78.5 Hyperlipidemia, unspecified; Z79.899 Other long term (current) drug therapy; Z79.82 Long term (current) use of aspirin
CPT/HCPCS: 71045; 74177; 80053; 81001; 82550; 82552; 83690; 83735; 84484; 85025; 93005; 93017; 96360; 96361; 99285; G0378; J7030; Q9967